=== PATIENT | female | born 1975 | race Caucasian/White ===

== ENCOUNTER 2017-04-17 11:47 | Emergency (ER) | payer MEDICAID, OTHER ==
[~2017-04-17] VITALS: Ht 167.6 cm; Wt 68.0 kg
--- NOTE | 2017-04-17 11:59 | NUR ---
DR PALOMO AT THE BEDSIDE FOR EVAL AND EXAM. URINE COLLECTED AND SENT TO LAB.
[2017-04-17 12:15] LABS: *BILIRUBIN,URIN NEGATIVE (NEGATIVE); *BLOOD, URINE 1+ (NEGATIVE); *CLARITY,URINE TURBID (CLEAR); *COLOR,URINE YELLOW (YELLOW); *KETONES,URINE NEGATIVE (NEGATIVE); *UROBILINOGEN,URINE 0.2 E.U./dl (NORMAL); LEUKOCYTE ESTERASE ,URINE 1+ (NEGATIVE); NITRITE, URINE NEGATIVE (NEGATIVE); PH,URINE 5.5 (5.0-8.0); UGLUCOSE NEGATIVE (NEGATIVE)
[2017-04-17] MEDS: IV NORMAL SALINE 1000 ML BAG IV ONE (12:15)
[2017-04-17 12:20] LABS: *PROTEIN,URINE 3+ (NEGATIVE)
[2017-04-17 12:21] LABS: *URINE HCG, QUAL NEGATIVE (NEGATIVE)
[2017-04-17 12:25] LABS: BACTERIA,URINE MODERATE /HPF (NONE SEEN); SQUAMOUS EPITHELIAL CELL,UR FEW /HPF (NONE SEEN); WBC,URINE TNTC /HPF (0-3)
[2017-04-17 12:26] LABS: YEAST,URINE MODERATE /HPF (NONE SEEN)
[2017-04-17 12:35] LABS: BASOPHILS # (AUTO) 0.1 K/uL (0.0-8.0); BASOPHILS % (AUTO) 0.7 % (0.0-2.0); EOSINOPHILS # (AUTO) 0.1 K/uL (0.0-0.7); EOSINOPHILS % (AUTO) 1.1 % (0.0-7.0); HEMATOCRIT 28.8 % (37-47); HEMOGLOBIN 9.4 G/DL (12.0-16.0); LYMPHOCYTES # (AUTO) 3.4 K/UL (0.8-4.8); LYMPHOCYTES % (AUTO) 39.7 % (20.5-51.5); MEAN CORPUSCULAR HEMOGLOBIN 26.4 UUG (27.0-31.0); MEAN CORPUSCULAR HGB CONC 33 g/dL (32.0-37.0); MEAN CORPUSCULAR VOLUME 81.3 FL (81.0-99.0); MONOCYTES # (AUTO) 0.5 K/UL (0.1-1.30); MONOCYTES % (AUTO) 6.1 % (0.0-11.0); NEUTROPHILS # (AUTO) 4.3 K/UL (1.8-8.9); NEUTROPHILS % (AUTO) 52.4 % (38.5-71.5); PLATELET COUNT (AUTO) 426 K/UL (150-450); RED BLOOD CELL COUNT(AUTO) 3.54 MIL/UL (4.2-5.4); WHITE BLOOD COUNT (AUTO) 8.4 K/UL (4.0-11.2)
[2017-04-17 12:39] LABS: CARBON DIOXIDE 27 mmol/L (21-32); CHLORIDE 104 mmol/L (98-107); CREATININE 1.6 mg/dL (0.6-1.3); GLUCOSE 180 mg/dL (74-106); POTASSIUM 4.3 mmol/L (3.5-5.1); UREA NITROGEN, BLOOD 26 mg/dL (7-18)
[2017-04-17 12:46] LABS: ALANINE AMINOTRANSFERASE 21 U/L (14-59); ALKALINE PHOSPHATASE 90 U/L (50-136); ASPARTATE AMINOTRANSFERASE 14 U/L (15-37); BILIRUBIN,DIRECT < 0.1 mg/dL (0.0-0.2); BILIRUBIN,TOTAL 0.1 mg/dL (0.2-1.0); TOTAL PROTEIN, SERUM 7.4 g/dL (6.4-8.2)
--- NOTE | 2017-04-17 12:47 | NUR ---
PAGED DR CAO(PT'S MD), AWAITING CALL BACK. PT IS RESTING IN BED. LOLI NOTED.
[2017-04-17] MEDS: CEFTRIAXONE 1 G in IV DEXTROSE 5% 50 ML IV ONE (13:04)
[2017-04-17] MEDS ORDERED: CEFTRIAXONE 1 G VIAL ONE (13:13)
[2017-04-17] MEDS ORDERED: ATOR80TA PO (13:36)
[2017-04-17] MEDS ORDERED: AMIN30LI2 PO (13:36)
[2017-04-17] MEDS ORDERED: BISA5TAB13 PR (13:36)
[2017-04-17] MEDS ORDERED: CHOL10005 PO (13:36)
[2017-04-17] MEDS ORDERED: ENOX40DI SQ (13:36)
[2017-04-17] MEDS ORDERED: CARV25TA PO (13:36)
[2017-04-17] MEDS ORDERED: CRAN3875 PO (13:36)
[2017-04-17] MEDS ORDERED: ASCO500C16 PO (13:36)
[2017-04-17] MEDS ORDERED: DEXT38GE12 PO (13:36)
[2017-04-17] MEDS ORDERED: NOVOLOG FLEXPEN SQ (13:36)
[2017-04-17] MEDS ORDERED: NA P133E RC (13:36)
[2017-04-17] MEDS ORDERED: DOCU-25 PO (13:36)
[2017-04-17] MEDS ORDERED: GABA300C PO (13:36)
[2017-04-17] MEDS ORDERED: MAGN400O4 PO (13:36)
[2017-04-17] MEDS ORDERED: HYDR-3326 PO ×2 (13:36)
[2017-04-17] MEDS ORDERED: LINA5TAB PO (13:36)
[2017-04-17] MEDS ORDERED: LISI-657 PO (13:36)
[2017-04-17] MEDS ORDERED: METF500T PO (13:36)
[2017-04-17] MEDS ORDERED: ACET-2154 PO ×2 (13:36)
[2017-04-17] MEDS ORDERED: CRAN425C PO (13:36)
[2017-04-17] MEDS ORDERED: LANTUS INSULIN SQ (13:36)
[2017-04-17] MEDS ORDERED: ZINC220C8 PO (13:36)
[2017-04-17] MEDS ORDERED: ASPI81TA31 PO (13:36)
[2017-04-17] MEDS ORDERED: MULT1TAB11 PO (13:36)
--- NOTE | 2017-04-17 13:54 | NUR ---
MRSA COLLECTED AND SENT TO LAB. BELONGING LIST COMPLETED.
--- NOTE | 2017-04-17 14:29 | NUR ---
DR PALOMO SPOKE TO DR SHAVER(PT INSURANCE CO ) AND PER PT WILL BE TX TO ANOTHER FACILITY. NO CALLS RECIEVED FROM DR MACHUCA.
--- NOTE | 2017-04-17 15:13 | NUR ---
Patient is resting comfortably in bed with eyes closed, NAD NOTED. AWAITING FOR TX INFO FROM [facility].
[2017-04-17] MEDS: ACETAMINOPHEN ES 500 MG TABLET PO ONE (16:10)
[2017-04-17] MEDS ORDERED: ACETAMINOPHEN ES 500 MG TABLET ONE (16:19)
--- NOTE | 2017-04-17 17:00 | NUR ---
DINNER PROVIDED, PT ATE 100% OF TRAY. NO C/O PAIN.
--- NOTE | 2017-04-17 17:48 | NUR ---
AFTER MULTIPLE CALLS TO PT RECIEVING TYPE COPY EXAMINER ABLE TO RECIEVE BED INFO. CALLED EMR FOR TX ETA 40 MIN.
--- NOTE | 2017-04-17 18:00 | NUR ---
REPORT GIVEN TO KEENAN PRICE AT [facility]. PT IS AWARE OF TX AND SIGNED TX PAPERS.
--- NOTE | 2017-04-17 18:38 | NUR ---
INFORMATION GIVEN TO TRANSPORTING HEARING THERAPIST. PT LEFT ER IN STABLE CONDITION, ALL BELONGINGS SENT W/ PT.
== END 2017-04-17 18:51 | disposition short-term general hospital (02) ==
LOC: ER 11:47
DX: N39.0 Urinary tract infection, site not specified (principal); R33.9 Retention of urine, unspecified; N17.9 Acute kidney failure, unspecified; E86.0 Dehydration; F32.9 Major depressive disorder, single episode, unspecified; E11.9 Type 2 diabetes mellitus without complications; E78.5 Hyperlipidemia, unspecified; I11.0 Hypertensive heart disease with heart failure; I50.9 Heart failure, unspecified; K21.9 Gastro-esophageal reflux disease without esophagitis; Z79.4 Long term (current) use of insulin; Z79.82 Long term (current) use of aspirin; D64.9 Anemia, unspecified; Z86.73 Personal history of transient ischemic attack (TIA), and cerebral infarction without residual deficits
CPT/HCPCS: 36415; 84703; 85025; 87077; 87086; A4663; J0696; J3490; J7030